=== PATIENT | male | born 1960 | race Caucasian/White ===

== ENCOUNTER 2021-12-07 09:39 | Inpatient (IN) | payer MEDICAID ==
[~2021-12-07] VITALS: Ht 180.3 cm; Wt 103.0 kg
[~2021-12-07 09:39] MED LIST: ACET-1017 PO; APIX5TAB3 PO; LITH300T3 PO; MULT-25 PO; PRAV40TA3 PO; QUET300T20 PO; TRAZ-256 PO; folic acid tablet PO; thiamine tablet PO
[2021-12-07 10:53] LABS: BASOPHILS # (AUTO) 0.1 X10'3 (0-0.2); BASOPHILS % (AUTO) 0.8 % (0-1); EOSINOPHILS % (AUTO) 0.5 % (0-6); HEMATOCRIT 43.5 % (42.0-52.0); HEMOGLOBIN 14.9 g/dl (14.0-17.9); LYMPHOCYTES # (AUTO) 1.4 X10'3 (1.1-4.8); LYMPHOCYTES % (AUTO) 14.7 % (21-51); MEAN CORPUSCULAR HEMOGLOBIN 34.5 PG (27.0-31.0); MEAN CORPUSCULAR HGB CONC 34.2 g/dL (33.0-36.5); MEAN CORPUSCULAR VOLUME 100.6 FL (78-98); MEAN PLATELET VOLUME 7.3 FL (7.4-10.4); MONOCYTES # (AUTO) 0.5 X10'3 (0-0.9); MONOCYTES % (AUTO) 5.5 % (2-12); NEUTROPHILS # (AUTO) 7.4 X10'3 (1.8-7.7); NEUTROPHILS % (AUTO) 78.5 % (42-75); PLATELET COUNT 291 X10'3 (140-440); RED BLOOD COUNT 4.32 X10'6 (4.70-6.10); WHITE BLOOD COUNT 9.4 X10'3 (4.5-11.0)
[2021-12-07 11:19] LABS: ALANINE AMINOTRANSFERASE 30 U/L (12-78); ALBUMIN 3.6 G/DL (3.4-5.0); ALBUMIN/GLOBULIN RATIO 0.9 (1.1-1.5); AMYLASE 72 U/L (25-115); ANION GAP 4 (8-16); ASPARTATE AMINO TRANSFERASE 23 U/L (10-37); BILIRUBIN,TOTAL 0.5 MG/DL (0.1-1.0); BLOOD UREA NITROGEN 12 MG/DL (7-18); BUN/CREATININE RATIO 14.5 (5.4-32.0); CALCIUM 9.1 MG/DL (8.5-10.1); CHLORIDE 106 MMOL/L (99-107); CREATININE 0.83 MG/DL (0.60-1.10); GLUCOSE 111 MG/DL (70-104); LIPASE 68 U/L (73-393); SODIUM 140 MMOL/L (135-145); TOTAL PROTEIN 7.7 G/DL (6.4-8.2); eGFR > 90 ML/MIN
[2021-12-07] MEDS ORDERED: normal saline 1000ML IV soln IVB ONE (11:25)
[2021-12-07] MEDS ORDERED: APIX5TAB3 PO (14:50)
[2021-12-07] MEDS ORDERED: PRAV40TA3 PO (14:50)
[2021-12-07] MEDS ORDERED: FOLI0.4T14 PO (14:50)
[2021-12-07] MEDS ORDERED: OMEP20CA16 PO (14:50)
[2021-12-07] MEDS ORDERED: THIA100T66 PO (14:50)
[2021-12-07] MEDS ORDERED: MULT-1085 PO (14:50)
[2021-12-07] MEDS ORDERED: mag hydrox/Alum hydrox/simeth 30ml oral suspension PO PRN (16:30)
[2021-12-07] MEDS ORDERED: magnesium 4gm in 100ml NS 100 ML IV PRN (16:30)
[2021-12-07] MEDS ORDERED: potassium CL 10mEq/100ml bag 100 ML IV PRN (16:30)
[2021-12-07] MEDS ORDERED: potassium Cl 20 mEq SR tablet PO PRN ×2 (16:30)
[2021-12-07] MEDS ORDERED: acetaminophen 650mg rectal suppository RC PRN (16:30)
[2021-12-07] MEDS ORDERED: acetaminophen 325mg tablet PO PRN ×2 (16:30)
[2021-12-07] MEDS ORDERED: magnesium 2GM in 50ml NS 50 ML IV PRN (16:30)
[2021-12-07] MEDS ORDERED: morphine 2 MG/ML inj. syringe IV PRN ×2 (16:30)
[2021-12-07] MEDS ORDERED: magnesium Cl slow-release 64mg tablet PO PRN (16:30)
[2021-12-07] MEDS ORDERED: magnesium hydroxide 30ml (MOM) UD suspension PO PRN (16:30)
[2021-12-07] MEDS ORDERED: diphenhydrAMINE 25mg capsule PO PRN (16:30)
[2021-12-07] MEDS ORDERED: HYDROcodone/acetaminophen 5mg/325mg tablet PO PRN (16:30)
[2021-12-07] MEDS ORDERED: ondansetron/PF 4mg/2ml inj IV PRN (16:30)
[2021-12-07] MEDS ORDERED: HYDROcodone/acetaminophen 10/325mg tab PO PRN (16:30)
[2021-12-07] MEDS: normal saline 1000ml 1,000 ML IV SCH (16:30)
[2021-12-07] MEDS ORDERED: bisacodyl 10mg suppository rectal RC PRN (16:30)
[2021-12-07 16:56] LABS: HEMOGLOBIN A1C 5.1 % (4.5-6.2)
[2021-12-07] MEDS: metroNIDAZOLE-Flagyl 500mg/NS 100 ML IV SCH ×2 (17:10→20:00)
[2021-12-07 17:45] LABS: CLARITY,URINE CLEAR (Clear); COLOR,URINE YELLOW (Yellow); GLUCOSE, URINE NEGATIVE (Neg); KETONES,URINE 15 mg/dl (Neg); LEUKOCYTE ESTERASE ,URINE NEGATIVE (Neg); NITRITES, URINE NEGATIVE (Neg); OCCULT BLOOD,URINE NEGATIVE (Neg); PH,URINE 7.5 (4.8-8.0); PROTEIN,URINE NEGATIVE (Neg)
[2021-12-07 17:54] LABS: UA COLLECTION TYPE NON-SPECIFIED
[2021-12-07] MEDS: ciprofloxacin lact 400MG/200ML 200 ML IV SCH ×2 (19:04→20:42)
[2021-12-07] MEDS: quetiapine fumarate ER 300mg tablet PO SCH (20:00)
[2021-12-07] MEDS: docusate sod 100mg capsule PO SCH (20:01)
[2021-12-07] MEDS: lithium carbonate 150mg capsule PO SCH (21:44)
[2021-12-07] MEDS: traZODone 50mg tablet PO SCH (21:44)
[2021-12-07] MEDS: diatr meglu/diatrizoate 30ml oral sol.-(3 dose) bottle PO SCH (21:45)
[2021-12-07] MEDS: K and/or MAG REPLACEMENT MC SCH (23:11)
[2021-12-08 01:40] LABS: BASOPHILS % (AUTO) 0.7 % (0-1); EOSINOPHILS # (AUTO) 0.2 X10'3 (0-0.9); EOSINOPHILS % (AUTO) 3.4 % (0-6); HEMATOCRIT 36.6 % (42.0-52.0); HEMOGLOBIN 12.5 g/dl (14.0-17.9); LYMPHOCYTES # (AUTO) 2.4 X10'3 (1.1-4.8); LYMPHOCYTES % (AUTO) 35.7 % (21-51); MEAN CORPUSCULAR HEMOGLOBIN 34.5 PG (27.0-31.0); MEAN CORPUSCULAR VOLUME 101.2 FL (78-98); MEAN PLATELET VOLUME 6.8 FL (7.4-10.4); MONOCYTES # (AUTO) 0.6 X10'3 (0-0.9); MONOCYTES % (AUTO) 8.7 % (2-12); NEUTROPHILS # (AUTO) 3.4 X10'3 (1.8-7.7); NEUTROPHILS % (AUTO) 51.5 % (42-75); PLATELET COUNT 232 X10'3 (140-440); RED BLOOD COUNT 3.62 X10'6 (4.70-6.10); RED CELL DISTRIBUTION WIDTH 12.9 % (11.5-14.5); WHITE BLOOD COUNT 6.6 X10'3 (4.5-11.0)
[2021-12-08 01:53] LABS: ALANINE AMINOTRANSFERASE 19 U/L (12-78); ALBUMIN 2.7 G/DL (3.4-5.0); ALBUMIN/GLOBULIN RATIO 0.9 (1.1-1.5); ANION GAP 9 (8-16); ASPARTATE AMINO TRANSFERASE 19 U/L (10-37); BILIRUBIN,TOTAL 0.8 MG/DL (0.1-1.0); BLOOD UREA NITROGEN 10 MG/DL (7-18); BUN/CREATININE RATIO 10.8 (5.4-32.0); CALCIUM 7.9 MG/DL (8.5-10.1); CHLORIDE 108 MMOL/L (99-107); CHOL/HDL RATIO 2.4 (0.00-4.99); CHOLESTEROL 144 MG/DL (0-200); CREATININE 0.93 MG/DL (0.60-1.10); GLUCOSE 91 MG/DL (70-104); HDL CHOLESTEROL 61 MG/DL (35-60); LDL CHOLESTEROL 66 MG/DL (50-100); MAGNESIUM 1.8 MG/DL (1.5-2.4); PHOSPHORUS 2.9 MG/DL (2.3-4.5); POTASSIUM 3.2 MMOL/L (3.5-5.1); SODIUM 142 MMOL/L (135-145); TOTAL CARBON DIOXIDE 25.2 MMOL/L (24-32); TOTAL PROTEIN 5.7 G/DL (6.4-8.2); TRIGLYCERIDES 135 MG/DL (20-135); eGFR 82 ML/MIN
[2021-12-08 02:00] VITALS: BP 142/87
[2021-12-08] MEDS: normal saline 1000ml 1,000 ML IV SCH ×3 (02:22→21:09)
--- NOTE | 2021-12-08 03:42 | NUR ---
Patient transfer from ER in a stable condition, vital signs stable oriented to room bed in lower position call light within reach will continue to monitor and report changes
[2021-12-08 06:00] VITALS: BP 117/71
--- NOTE | 2021-12-08 06:44 | NUR ---
Problems reprioritized. Patient report given, questions answered & plan of care reviewed with Samantha URBINA .
[2021-12-08] MEDS: K and/or MAG REPLACEMENT MC SCH ×2 (08:00→20:00)
[2021-12-08] MEDS: diatr meglu/diatrizoate 30ml oral sol.-(3 dose) bottle PO SCH ×2 (08:07→21:07)
[2021-12-08] MEDS: metroNIDAZOLE-Flagyl 500mg/NS 100 ML IV SCH ×2 (08:48→21:06)
[2021-12-08] MEDS ORDERED: iohexol 300mg/ml 100ml inj. ONE (10:49)
[2021-12-08 11:00] VITALS: BP 103/76
[2021-12-08] MEDS: ciprofloxacin lact 400MG/200ML 200 ML IV SCH ×2 (13:13→23:07)
[2021-12-08] MEDS ORDERED: LORazepam 2 mg/ml vial IV PRN (13:40)
[2021-12-08] MEDS: multivitamins, therapeutics tablet PO SCH (14:16)
[2021-12-08] MEDS: thiamine 100mg tablet PO SCH (14:16)
[2021-12-08] MEDS: pantoprazole 40mg Tablet.DR PO SCH (14:16)
[2021-12-08] MEDS: folic acid 1mg tablet PO SCH (14:16)
[2021-12-08] MEDS: docusate sod 100mg capsule PO SCH ×2 (14:17→19:38)
[2021-12-08 14:19] LABS: POTASSIUM 3.9 MMOL/L (3.5-5.1)
[2021-12-08] MEDS: pravastatin 40mg tablet PO SCH (16:12)
--- NOTE | 2021-12-08 17:45 | NUR ---
Mr. Kruse has been assessed as indicted. He has been noted to be both pleasant and cooperative. He has completed a CT scan of the abdomen with contrast. he is to have a repeat CTA tomorrow. His potassium has been reevaluated and found to be with in normal limits that requires no intervention. He continues to deny pain. He ambulates to the restroom with no assistance. He also tolerated IVF. his has been in to visit him. he is presently resting quietly.
[2021-12-08 18:00] VITALS: BP 112/80
--- NOTE | 2021-12-08 18:15 | NUR ---
Problems reprioritized. Patient report given, questions answered & plan of care reviewed with GOLDY URBINA.
[2021-12-08] MEDS: apixaban 5mg tablet PO SCH (19:38)
[2021-12-08] MEDS: quetiapine fumarate ER 300mg tablet PO SCH (21:07)
[2021-12-08] MEDS: traZODone 50mg tablet PO SCH (21:07)
[2021-12-08] MEDS: lithium carbonate 150mg capsule PO SCH (21:07)
[2021-12-08 22:00] VITALS: BP 117/73
[2021-12-09 02:00] VITALS: BP 128/76
[2021-12-09 06:00] VITALS: BP 118/67
--- NOTE | 2021-12-09 06:39 | NUR ---
Problems reprioritized. Patient report given, questions answered & plan of care reviewed with Anirudh URBINA.
[2021-12-09 07:17] LABS: BASOPHILS % (AUTO) 0.7 % (0-1); EOSINOPHILS # (AUTO) 0.4 X10'3 (0-0.9); HEMATOCRIT 38.8 % (42.0-52.0); HEMOGLOBIN 12.9 g/dl (14.0-17.9); LYMPHOCYTES % (AUTO) 32.5 % (21-51); MEAN CORPUSCULAR HEMOGLOBIN 34.1 PG (27.0-31.0); MEAN CORPUSCULAR HGB CONC 33.3 g/dL (33.0-36.5); MEAN CORPUSCULAR VOLUME 102.5 FL (78-98); MEAN PLATELET VOLUME 7.1 FL (7.4-10.4); MONOCYTES # (AUTO) 0.6 X10'3 (0-0.9); MONOCYTES % (AUTO) 9.3 % (2-12); NEUTROPHILS # (AUTO) 3.1 X10'3 (1.8-7.7); NEUTROPHILS % (AUTO) 51.5 % (42-75); PLATELET COUNT 240 X10'3 (140-440); RED BLOOD COUNT 3.79 X10'6 (4.70-6.10); RED CELL DISTRIBUTION WIDTH 12.6 % (11.5-14.5); WHITE BLOOD COUNT 6.1 X10'3 (4.5-11.0)
[2021-12-09 07:56] LABS: ALANINE AMINOTRANSFERASE 22 U/L (12-78); ALBUMIN 2.8 G/DL (3.4-5.0); ANION GAP 4 (8-16); ASPARTATE AMINO TRANSFERASE 20 U/L (10-37); BILIRUBIN,TOTAL 0.7 MG/DL (0.1-1.0); BLOOD UREA NITROGEN 8 MG/DL (7-18); BUN/CREATININE RATIO 8.1 (5.4-32.0); CALCIUM 8.3 MG/DL (8.5-10.1); CHLORIDE 110 MMOL/L (99-107); CREATININE 0.99 MG/DL (0.60-1.10); GLUCOSE 100 MG/DL (70-104); MAGNESIUM 2.1 MG/DL (1.5-2.4); PHOSPHORUS 3.8 MG/DL (2.3-4.5); POTASSIUM 3.8 MMOL/L (3.5-5.1); SODIUM 142 MMOL/L (135-145); TOTAL CARBON DIOXIDE 28.3 MMOL/L (24-32); TOTAL PROTEIN 5.7 G/DL (6.4-8.2); eGFR 77 ML/MIN
[2021-12-09] MEDS: K and/or MAG REPLACEMENT MC SCH (08:00)
[2021-12-09] MEDS: ciprofloxacin lact 400MG/200ML 200 ML IV SCH (08:17)
[2021-12-09] MEDS: metroNIDAZOLE-Flagyl 500mg/NS 100 ML IV SCH (08:18)
[2021-12-09] MEDS: apixaban 5mg tablet PO SCH (08:18)
[2021-12-09] MEDS: thiamine 100mg tablet PO SCH (08:18)
[2021-12-09] MEDS: docusate sod 100mg capsule PO SCH (08:18)
[2021-12-09] MEDS: multivitamins, therapeutics tablet PO SCH (08:18)
[2021-12-09] MEDS: folic acid 1mg tablet PO SCH (08:18)
[2021-12-09] MEDS: pantoprazole 40mg Tablet.DR PO SCH (08:18)
[2021-12-09] MEDS: normal saline 1000ml 1,000 ML IV SCH (08:18)
[2021-12-09] MEDS ORDERED: iohexol 350MG/ML 100ml bottle IV ONE (10:30)
[2021-12-09] MEDS: pravastatin 40mg tablet PO SCH (10:37)
[2021-12-09 11:00] VITALS: BP 145/80
[2021-12-09] MEDS ORDERED: CIPR-202 PO (14:16)
[2021-12-09] MEDS ORDERED: LACT1CAP26 PO (14:16)
[2021-12-09] MEDS ORDERED: METR-159 PO (14:16)
--- NOTE | 2021-12-09 14:46 | NUR ---
Mr. Kruse has been assessed as indicated. He continues to deny pain. He ambulates to the restroom independetly. He was assessed by PT today. He also completed a CT of the chest today. 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 He does anticipate being DC to home today. He is presently resting quietly and will continue to be monitored.
[2021-12-09 15:00] VITALS: BP 121/69
--- NOTE | 2021-12-09 15:45 | NUR ---
Mr Kruse has been DC to home. IV access has been removed. DC instructions have been reviewed. he was made aware of new RX information, and what pharmacy it was sent to. he was picked up by his in a private vehicle. He was compliant with the plan to DC to home. At the time of DC he had no s/s of distress or discomfort.
== END 2021-12-09 16:49 | disposition home or self-care (01) | DRG 249 ==
LOC: ER 09:39 → ED HOLD 16:37 → PCU 3S 12-08 01:40
PROVIDERS: ADMIT Family Medicine; ATTEND Family Medicine
PROC: BW211ZZ Computerized Tomography (CT Scan) of Abdomen and Pelvis using Low Osmolar Contrast (ICD-10-PCS; principal; 2021-12-08)
PROC: B32T1ZZ Computerized Tomography (CT Scan) of Left Pulmonary Artery using Low Osmolar Contrast (ICD-10-PCS; 2021-12-09)
PROC: B3201ZZ Computerized Tomography (CT Scan) of Thoracic Aorta using Low Osmolar Contrast (ICD-10-PCS; 2021-12-09)
PROC: B32S1ZZ Computerized Tomography (CT Scan) of Right Pulmonary Artery using Low Osmolar Contrast (ICD-10-PCS; 2021-12-09)
DX: K52.9 Noninfective gastroenteritis and colitis, unspecified (principal); E66.9 Obesity, unspecified; E78.5 Hyperlipidemia, unspecified; F41.9 Anxiety disorder, unspecified; K59.00 Constipation, unspecified; N28.9 Disorder of kidney and ureter, unspecified; K21.9 Gastro-esophageal reflux disease without esophagitis; F31.9 Bipolar disorder, unspecified; Z20.822 Contact with and (suspected) exposure to COVID-19; F10.20 Alcohol dependence, uncomplicated; Z86.711 Personal history of pulmonary embolism; Z79.899 Other long term (current) drug therapy; Z90.49 Acquired absence of other specified parts of digestive tract; Z87.442 Personal history of urinary calculi; Z68.31 Body mass index [BMI] 31.0-31.9, adult; Z80.0 Family history of malignant neoplasm of digestive organs; Z79.01 Long term (current) use of anticoagulants; Z88.0 Allergy status to penicillin; Z98.52 Vasectomy status; Z81.8 Family history of other mental and behavioral disorders
CPT/HCPCS: 36415; 71045; 71275; 74176; 74177; 80053; 80061; 80178; 81003; 82150; 83036; 83605; 83690; 83735; 83880; 84100; 84132; 84145; 84484; 85025; 86885; 86900; 86901; 87040; 87635; 92508; 92616; 93005; 96360; 96361; 97116; 97161; 97530; 99285; G0378; J0744; J2270; J3490; J7030; Q9963; Q9967